=== PATIENT | female | born 1965 | race Caucasian/White ===

== ENCOUNTER 2017-09-15 21:26 | Emergency (ER) | payer OTHER ==
--- NOTE | 2017-09-15 22:42 | RAD ---
CHEST TWO VIEWS: 09/15/17 COMPARISON: 07/29/16 study. HISTORY: Cough. Heart size and mediastinum are within normal limits. The lungs are clear of infiltrates. Postoperativ e changes of the cervical spine are present. IMPRESSION: No active intrathoracic disease. POS: [facility]
== END 2017-09-15 23:17 | disposition home or self-care (01) ==
LOC: ERS 21:26
DX: J11.1 Influenza due to unidentified influenza virus with other respiratory manifestations (principal); F90.9 Attention-deficit hyperactivity disorder, unspecified type; E03.9 Hypothyroidism, unspecified; Z79.899 Other long term (current) drug therapy
CPT/HCPCS: 71020

== ENCOUNTER 2017-12-06 14:55 | Emergency (ER) | payer OTHER | END 2017-12-06 16:53 | disposition home or self-care (01) | LOC: ERS 14:55 | DX: L01.00 Impetigo, unspecified (principal); E03.9 Hypothyroidism, unspecified; K51.90 Ulcerative colitis, unspecified, without complications; F32.9 Major depressive disorder, single episode, unspecified; F90.9 Attention-deficit hyperactivity disorder, unspecified type; F17.210 Nicotine dependence, cigarettes, uncomplicated; Z71.6 Tobacco abuse counseling; Z79.891 Long term (current) use of opiate analgesic; Z79.899 Other long term (current) drug therapy | CPT/HCPCS: 99406 ==

== ENCOUNTER 2018-01-27 12:08 | Emergency (ER) | payer OTHER | END 2018-01-27 12:40 | disposition left against medical advice (07) | LOC: ERS 12:08 | DX: Z53.21 Procedure and treatment not carried out due to patient leaving prior to being seen by health care provider (principal) ==

== ENCOUNTER 2018-02-28 15:26 | Emergency (ER) | payer OTHER | END 2018-02-28 16:15 | disposition home or self-care (01) | LOC: ERS 15:26 | DX: J30.9 Allergic rhinitis, unspecified (principal); H73.892 Other specified disorders of tympanic membrane, left ear; E03.9 Hypothyroidism, unspecified; F41.9 Anxiety disorder, unspecified; F90.9 Attention-deficit hyperactivity disorder, unspecified type; Z71.6 Tobacco abuse counseling; F17.210 Nicotine dependence, cigarettes, uncomplicated; Z79.899 Other long term (current) drug therapy | CPT/HCPCS: 99406 ==

== ENCOUNTER 2018-04-25 21:37 | Emergency (ER) | payer OTHER ==
[2018-04-25] MEDS ORDERED: Dexamethasone 10 MG/ML VIAL ONE (22:14)
== END 2018-04-25 22:13 | disposition home or self-care (01) ==
LOC: ERS 21:37
DX: R21 Rash and other nonspecific skin eruption (principal); E03.9 Hypothyroidism, unspecified; F90.9 Attention-deficit hyperactivity disorder, unspecified type; F41.9 Anxiety disorder, unspecified; F17.210 Nicotine dependence, cigarettes, uncomplicated
CPT/HCPCS: 99282; J1100

== ENCOUNTER 2018-05-07 21:45 | Emergency (ER) | payer OTHER | END 2018-05-07 23:52 | disposition left against medical advice (07) | LOC: ERS 21:45 | DX: Z53.21 Procedure and treatment not carried out due to patient leaving prior to being seen by health care provider (principal) ==

== ENCOUNTER 2018-10-25 02:56 | Emergency (ER) | payer OTHER, SELFPAY | END 2018-10-25 04:19 | disposition home or self-care (01) | LOC: ERS 02:56 | DX: K05.10 Chronic gingivitis, plaque induced (principal); E03.9 Hypothyroidism, unspecified; F17.210 Nicotine dependence, cigarettes, uncomplicated | CPT/HCPCS: 99282 ==

== ENCOUNTER 2018-12-04 13:57 | Emergency (ER) | payer SELFPAY | END 2018-12-04 14:44 | disposition home or self-care (01) | LOC: ERS 13:57 | DX: H92.01 Otalgia, right ear (principal); K03.81 Cracked tooth; R59.1 Generalized enlarged lymph nodes; E03.9 Hypothyroidism, unspecified; F17.210 Nicotine dependence, cigarettes, uncomplicated; Z71.6 Tobacco abuse counseling; Z79.899 Other long term (current) drug therapy | CPT/HCPCS: 99406 ==

== ENCOUNTER 2018-12-19 17:38 | Emergency (ER) | payer SELFPAY ==
[2018-12-19 18:11] LABS: #Basophils 0.1 thou/uL (0.0-0.2); #Eosinphils 0.3 thou/uL (0.0-0.7); #Lymphocytes 3.9 thou/uL (1.20-3.40); #Monocytes 0.8 thou/uL (0.11-0.59); #Neutrophils 4.5 thou/uL (1.40-6.50); %Eosinophils 2.7 % (0.0-10.0); %Monocytes 7.8 % (0.0-10.0); %Neutrophils 47.4 % (42.0-75.0); Hemoglobin 14.6 g/dL (12.0-16.0); Mean Corpuscular HGB CONC 33.8 g/dL (32.0-36.0); Mean Corpuscular Hemoglobin 31.9 pg (27.0-31.0); Mean Corpuscular Volume 94.6 fL (78.0-98.0); Mean Platelet Volume 8.8 fL (7.4-10.4); Platelet Count 263 thou/uL (130-400); RBC Distribution Width 12.4 % (11.5-14.5); Red Blood Cell (RBC) Count 4.58 mill/uL (4.20-5.40); White Blood Cell (WBC) Count 9.6 thou/uL (4.8-10.8)
[2018-12-19 19:15] LABS: Albumin 3.3 g/dL (3.5-5.0)
[2018-12-19 19:16] LABS: Chloride 110 mmol/L (98-107); Potassium 4.1 mmol/L (3.5-5.1); Sodium 143 mmol/L (136-145)
[2018-12-19 19:17] LABS: Calcium 8.7 mg/dL (7.8-10.44)
[2018-12-19 19:18] LABS: Glucose 94 mg/dL (70-105); Protein, Total 5.3 g/dL (6.0-8.3)
[2018-12-19 19:19] LABS: Anion Gap 9 mmol/L (10-20); Bilirubin, Total 0.3 mg/dL (0.2-1.2); Carbon Dioxide 28 mmol/L (22-29)
[2018-12-19 19:21] LABS: Alkaline Phosphatase 37 U/L (40-150); Calc. Creatinine Clearance 0 mL/min (70-130); Estimated GFR-MDRD Greater than 90
[2018-12-19 19:22] LABS: BUN (Urea Nitrogen) 11 mg/dL (7.0-18.7)
[2018-12-19 19:23] LABS: AST (SGOT) 19 U/L (5-34)
[2018-12-19 19:24] LABS: ALT (SGPT) 14 U/L (8-55)
== END 2018-12-19 19:42 | disposition home or self-care (01) ==
LOC: ERS 17:38
DX: R60.0 Localized edema (principal); E03.9 Hypothyroidism, unspecified; F17.210 Nicotine dependence, cigarettes, uncomplicated; Z79.899 Other long term (current) drug therapy
CPT/HCPCS: 36415; 80053; 83880; 84484; 85025; 93005

== ENCOUNTER 2018-12-26 16:10 | Emergency (ER) | payer SELFPAY ==
[2018-12-26] MEDS ORDERED: Dexamethasone 4 mg/ml Vial ONE (16:43)
[2018-12-26] MEDS ORDERED: Ibuprofen 800 MG TAB ONE (17:17)
== END 2018-12-26 17:22 | disposition home or self-care (01) ==
LOC: ERS 16:10
DX: J02.9 Acute pharyngitis, unspecified (principal); E03.9 Hypothyroidism, unspecified; F17.210 Nicotine dependence, cigarettes, uncomplicated; Z79.899 Other long term (current) drug therapy
CPT/HCPCS: 87081; 87430; 87804; 99283; J1100

== ENCOUNTER 2018-12-29 18:18 | Emergency (ER) | payer SELFPAY ==
[2018-12-29] MEDS ORDERED: Dexamethasone 10 MG/ML VIAL ONE (18:53)
== END 2018-12-29 18:59 | disposition home or self-care (01) ==
LOC: ERS 18:18
DX: H10.12 Acute atopic conjunctivitis, left eye (principal); J30.2 Other seasonal allergic rhinitis; E03.9 Hypothyroidism, unspecified; F17.210 Nicotine dependence, cigarettes, uncomplicated
CPT/HCPCS: 99282; J1100

== ENCOUNTER 2019-01-03 16:50 | Emergency (ER) | payer SELFPAY ==
[2019-01-03 17:41] LABS: #Basophils 0.1 thou/uL (0.0-0.2); #Eosinphils 0.3 thou/uL (0.0-0.7); #Lymphocytes 5.4 thou/uL (1.20-3.40); #Monocytes 1.3 thou/uL (0.11-0.59); #Neutrophils 6.4 thou/uL (1.40-6.50); %Eosinophils 2.4 % (0.0-10.0); %Lymphocytes 39.8 % (21.0-51.0); %Monocytes 9.9 % (0.0-10.0); %Neutrophils 46.9 % (42.0-75.0); Hemoglobin 16.1 g/dL (12.0-16.0); Mean Corpuscular HGB CONC 32.5 g/dL (32.0-36.0); Mean Corpuscular Hemoglobin 30.4 pg (27.0-31.0); Mean Corpuscular Volume 93.4 fL (78.0-98.0); Mean Platelet Volume 7.9 fL (7.4-10.4); Platelet Count 359 thou/uL (130-400); RBC Distribution Width 12.3 % (11.5-14.5); Red Blood Cell (RBC) Count 5.29 mill/uL (4.20-5.40); White Blood Cell (WBC) Count 13.5 thou/uL (4.8-10.8)
--- NOTE | 2019-01-03 17:47 | RAD ---
EXAM: Chest PA and lateral: HISTORY: Cough sore throat sinus congestion COMPARISON: 09/15/2017 FINDINGS: Heart size is normal. The lungs are clear. No confluent pneumonia, overt edema, pleural effusion, or other acute process. IMPRESSION: No significant acute intrathoracic disease.
[2019-01-03 18:01] LABS: ALT (SGPT) 18 U/L (8-55); AST (SGOT) 20 U/L (5-34); Albumin 3.8 g/dL (3.5-5.0); Alkaline Phosphatase 51 U/L (40-150); Anion Gap 12 mmol/L (10-20); BUN (Urea Nitrogen) 8 mg/dL (9.8-20.1); Bilirubin, Total 0.8 mg/dL (0.2-1.2); Calc. Creatinine Clearance 0 mL/min (70-130); Carbon Dioxide 28 mmol/L (22-29); Chloride 103 mmol/L (98-107); Estimated GFR-MDRD 68; Globulin 2.4 g/dL (2.4-3.5); Glucose 102 mg/dL (70-105); Potassium 3.8 mmol/L (3.5-5.1); Protein, Total 6.2 g/dL (6.0-8.3); Sodium 139 mmol/L (136-145)
== END 2019-01-03 18:54 | disposition home or self-care (01) ==
LOC: ERS 16:50
DX: J06.9 Acute upper respiratory infection, unspecified (principal); E03.9 Hypothyroidism, unspecified; F17.210 Nicotine dependence, cigarettes, uncomplicated
CPT/HCPCS: 36415; 71046; 80053; 83880; 84443; 84484; 85025; 87081; 87430; 87804; 93005

== ENCOUNTER → 2019-06-02 | Emergency (ER) | payer SELFPAY ==
[2019-06-02 14:31] LABS: Bilirubin Negative (Negative); Blood, Urine Negative (Negative); Clarity Clear (Clear); Glucose, Urine (Dipstick) Normal (Negative); Leukocyte Negative Leu/uL (Negative); Nitrite Negative (Negative); Protein, Urine (Dipstick) Negative (Neg-Trace); Urobilinogen Normal mg/dL (Less than 2)
== END ==
LOC: ERS 14:00
DX: M54.5 Low back pain (principal); E03.9 Hypothyroidism, unspecified; Z87.891 Personal history of nicotine dependence; Z79.899 Other long term (current) drug therapy
CPT/HCPCS: 81003; 99283

== ENCOUNTER 2019-06-10 20:38 | Emergency (ER) | payer SELFPAY | END 2019-06-10 23:26 | disposition home or self-care (01) | LOC: ERS 20:38 | DX: L03.211 Cellulitis of face (principal); E03.9 Hypothyroidism, unspecified; F41.9 Anxiety disorder, unspecified; F90.9 Attention-deficit hyperactivity disorder, unspecified type; Z87.891 Personal history of nicotine dependence; Z79.899 Other long term (current) drug therapy | CPT/HCPCS: 99283 ==

== ENCOUNTER 2019-06-27 15:37 | Emergency (ER) | payer SELFPAY | END 2019-06-27 18:05 | disposition home or self-care (01) | LOC: ERS 15:37 | DX: L03.211 Cellulitis of face (principal); B37.0 Candidal stomatitis; E03.9 Hypothyroidism, unspecified; F90.9 Attention-deficit hyperactivity disorder, unspecified type; F41.9 Anxiety disorder, unspecified; F17.210 Nicotine dependence, cigarettes, uncomplicated; Z79.899 Other long term (current) drug therapy | CPT/HCPCS: 99283 ==

== ENCOUNTER 2019-07-10 05:34 | Emergency (ER) | payer SELFPAY ==
[2019-07-10 06:52] LABS: #Basophils 0.1 thou/uL (0.0-0.2); #Eosinphils 0.3 thou/uL (0.0-0.7); #Lymphocytes 3.7 thou/uL (1.20-3.40); #Neutrophils 2.7 thou/uL (1.40-6.50); %Basophils 0.9 % (0.0-1.0); %Eosinophils 3.4 % (0.0-10.0); %Lymphocytes 47.6 % (21.0-51.0); %Monocytes 13.1 % (0.0-10.0); %Neutrophils 35.1 % (42.0-75.0); Hemoglobin 12.7 g/dL (12.0-16.0); Mean Corpuscular HGB CONC 33.9 g/dL (32.0-36.0); Mean Corpuscular Hemoglobin 32.1 pg (27.0-31.0); Mean Corpuscular Volume 94.5 fL (78.0-98.0); Mean Platelet Volume 8.3 fL (7.4-10.4); Platelet Count 260 thou/uL (130-400); RBC Distribution Width 11.5 % (11.5-14.5); Red Blood Cell (RBC) Count 3.96 mill/uL (4.20-5.40); White Blood Cell (WBC) Count 7.8 thou/uL (4.8-10.8)
[2019-07-10 07:10] LABS: ALT (SGPT) 13 U/L (8-55); AST (SGOT) 21 U/L (5-34); Albumin 4.1 g/dL (3.5-5.0); Alkaline Phosphatase 49 U/L (40-110); Anion Gap 12 mmol/L (10-20); BUN (Urea Nitrogen) 13 mg/dL (9.8-20.1); Bilirubin, Total 0.4 mg/dL (0.2-1.2); Calc. Creatinine Clearance 0 mL/min (70-130); Calcium 9.2 mg/dL (7.8-10.44); Carbon Dioxide 22 mmol/L (22-29); Chloride 108 mmol/L (98-107); Estimated GFR-MDRD 76; Globulin 2.6 g/dL (2.4-3.5); Glucose 96 mg/dL (70-105); Potassium 3.9 mmol/L (3.5-5.1); Protein, Total 6.7 g/dL (6.0-8.3); Sodium 138 mmol/L (136-145)
--- NOTE | 2019-07-10 07:47 | ULT ---
ULTRASOUND DOPPLER DUPLEX VENOUS BILATERAL LOWER EXTREMITIES: DATE: 07/10/2019 HISTORY: 53-year-old female with bilateral lower extremity pain TECHNIQUE: Grayscale, color-flow, and spectral analysis, of major veins of bilateral lower extremities. FINDINGS: There is demonstration of blood flow with normal compressibility, of the bilateral common femoral, pr ofunda femoral, greater saphenous, femoral, popliteal, and posterior tibial, veins. IMPRESSION: Negative. No deep venous thrombosis of bilateral lower extremities.
== END 2019-07-10 08:04 | disposition home or self-care (01) ==
LOC: ERS 05:34
DX: M79.89 Other specified soft tissue disorders (principal); R23.4 Changes in skin texture; E03.9 Hypothyroidism, unspecified; F41.9 Anxiety disorder, unspecified; F90.9 Attention-deficit hyperactivity disorder, unspecified type; F17.210 Nicotine dependence, cigarettes, uncomplicated; Z79.899 Other long term (current) drug therapy
CPT/HCPCS: 36415; 80053; 83880; 85025; 93970

== ENCOUNTER 2019-07-17 11:09 | Emergency (ER) | payer SELFPAY ==
--- NOTE | 2019-07-17 11:46 | RAD ---
2 view chest: [07/17/2019] Comparion:01/03/2019 HISTORY: Shortness of breath with bilateral lower extremity edema FINDINGS: Heart and mediastinal contours are grossly unremarkable. No pneumothorax or pleural fluid. No focal consolidation or alveolar edema. IMPRESSION: No acute findings.
[2019-07-17 12:12] LABS: ALT (SGPT) 12 U/L (8-55); AST (SGOT) 18 U/L (5-34); Albumin 3.9 g/dL (3.5-5.0); Alkaline Phosphatase 55 U/L (40-110); Anion Gap 11 mmol/L (10-20); BUN (Urea Nitrogen) 12 mg/dL (9.8-20.1); Bilirubin, Total 0.3 mg/dL (0.2-1.2); Calc. Creatinine Clearance 0 mL/min (70-130); Calcium 9.3 mg/dL (7.8-10.44); Carbon Dioxide 26 mmol/L (22-29); Chloride 108 mmol/L (98-107); Estimated GFR-MDRD 79; Globulin 2.2 g/dL (2.4-3.5); Glucose 114 mg/dL (70-105); Protein, Total 6.1 g/dL (6.0-8.3); Sodium 141 mmol/L (136-145)
[2019-07-17] MEDS ORDERED: ISOVUE-370 76%-LOCM 1 ML ONE (12:13)
[2019-07-17 12:31] LABS: #Basophils 0.1 thou/uL (0.0-0.2); #Eosinphils 0.2 thou/uL (0.0-0.7); #Lymphocytes 2.9 thou/uL (1.20-3.40); #Monocytes 0.8 thou/uL (0.11-0.59); #Neutrophils 2.3 thou/uL (1.40-6.50); %Eosinophils 3.1 % (0.0-10.0); %Lymphocytes 47.3 % (21.0-51.0); %Monocytes 12.5 % (0.0-10.0); %Neutrophils 36.1 % (42.0-75.0); Hemoglobin 12.3 g/dL (12.0-16.0); Mean Corpuscular HGB CONC 32.3 g/dL (32.0-36.0); Mean Corpuscular Hemoglobin 30.8 pg (27.0-31.0); Mean Corpuscular Volume 95.1 fL (78.0-98.0); Mean Platelet Volume 7.9 fL (7.4-10.4); Platelet Count 279 thou/uL (130-400); RBC Distribution Width 11.2 % (11.5-14.5); White Blood Cell (WBC) Count 6.2 thou/uL (4.8-10.8)
--- NOTE | 2019-07-17 13:30 | CT ---
CT PULMONARY ANGIOGRAM WITH IV CONTRAST AND 3D POSTPROCESSING: Date: 07/17/19 HISTORY: Shortness of breath. FINDINGS: The pulmonary arterial vasculature is well-opacified without filling defects to suggest pulmonary emb olism. The thoracic aorta is opacified without aneurysm or dissection. No pleural or pericardial effu sions are seen. No pneumothoraces, focal areas of consolidation, or lung masses are identified. There are dependent changes in the posterior lung escobar. There is bullous change in the right upper lobe. No acute osseous abnormalities are seen. IMPRESSION: No CT evidence of pulmonary embolism. POS: [facility]
[2019-07-17] MEDS ORDERED: Acetaminophen 500 MG TAB ONE (14:07)
[2019-07-17] MEDS ORDERED: Dexamethasone 10 MG/ML VIAL ONE (14:08)
--- NOTE | 2019-07-17 14:09 | ULT ---
VENOUS DOPPLER ULTRASOUND OF THE RIGHT LOWER EXTREMITY: Date: 07/17/19 HISTORY: Right lower extremity pain and lump in medial thigh. TECHNIQUE: Rojo scale ultrasound with color flow and spectral Doppler imaging of the deep venous system of the r ight lower extremity performed. FINDINGS: There is good flow, compression, and augmentation noted in the right common femoral, femoral, deep fe moral, popliteal, and posterior tibial veins. There is a 4.5 x 1.2 x 3.3 cm avascular cyst in the popliteal fossa consistent with Colon's cyst. Sonographic evaluation of the region of palpable concern in the medial thigh demonstrates no abnormal ity. IMPRESSION: 1. No evidence of deep venous thrombosis in the right lower extremity. 2. Colon's cyst. POS: [facility]
== END 2019-07-17 14:23 | disposition home or self-care (01) ==
LOC: ERS 11:09
DX: R06.00 Dyspnea, unspecified (principal); E03.9 Hypothyroidism, unspecified; F41.9 Anxiety disorder, unspecified; F90.9 Attention-deficit hyperactivity disorder, unspecified type; F17.210 Nicotine dependence, cigarettes, uncomplicated; Z79.899 Other long term (current) drug therapy
CPT/HCPCS: 36415; 71046; 71275; 80053; 83880; 84484; 85025; 85379; 93005; 94760; 96361; 96374; J1100; Q9966

== ENCOUNTER 2020-02-05 19:24 | Emergency (ER) | payer SELFPAY ==
--- NOTE | 2020-02-05 20:06 | RAD ---
SINGLE VIEW OF THE CHEST: Comparison: 03-02-17 History: Intermittent right chest pain. FINDINGS: Single view of the chest shows a normal sized cardiomediastinal silhouette. There is no evidence of c onsolidation, mass, or pleural effusion. The bones are unremarkable. IMPRESSION: No evidence of acute cardiopulmonary disease. POS: [facility]
[2020-02-05 20:15] LABS: #Basophils 0.2 thou/uL (0.0-0.2); #Eosinphils 0.1 thou/uL (0.0-0.7); #Lymphocytes 3.9 thou/uL (1.20-3.40); #Neutrophils 4.7 thou/uL (1.40-6.50); %Basophils 1.5 % (0.0-1.0); %Eosinophils 1.5 % (0.0-10.0); %Lymphocytes 39.7 % (21.0-51.0); %Monocytes 9.7 % (0.0-10.0); %Neutrophils 47.6 % (42.0-75.0); Mean Corpuscular Hemoglobin 32.3 pg (27.0-31.0); Mean Corpuscular Volume 97.9 fL (78.0-98.0); Platelet Count 236 thou/uL (130-400); RBC Distribution Width 12.3 % (11.5-14.5); Red Blood Cell (RBC) Count 4.95 mill/uL (4.20-5.40); White Blood Cell (WBC) Count 9.9 thou/uL (4.8-10.8)
[2020-02-05 20:39] LABS: BHCG - Serum Negative (NEGATIVE); Pregs Control Background? CLEAR/WHITE (CLR/WHITE); Pregs Control Bar Appear? YES (CONTROL BAR)
[2020-02-05 20:44] LABS: ALT (SGPT) 14 U/L (8-55); AST (SGOT) 20 U/L (5-34); Albumin 3.9 g/dL (3.5-5.0); Alkaline Phosphatase 48 U/L (40-110); Anion Gap 11 mmol/L (10-20); BUN (Urea Nitrogen) 20 mg/dL (9.8-20.1); CK (CPK) 111 U/L (29-168); Calc. Creatinine Clearance 0 mL/min (70-130); Calcium 9.9 mg/dL (7.8-10.44); Carbon Dioxide 27 mmol/L (22-29); Chloride 104 mmol/L (98-107); Estimated GFR-MDRD 56; Globulin 2.2 g/dL (2.4-3.5); Glucose 98 mg/dL (70-105); Potassium 3.7 mmol/L (3.5-5.1); Protein, Total 6.1 g/dL (6.0-8.3); Sodium 138 mmol/L (136-145)
--- NOTE | 2020-02-08 14:28 | EKG ---
Test Reason : Blood Pressure : / mmHG Vent. Rate : 081 BPM Atrial Rate : 081 BPM P-R Int : 166 ms QRS Dur : 070 ms QT Int : 354 ms P-R-T Axes : 068 001 045 degrees QTc Int : 411 ms Normal sinus rhythm with sinus arrhythmia Possible Left atrial enlargement Possible Anterior infarct , age undetermined Abnormal ECG Confirmed by KEKE DEMARCO DO ([id number]), video effects editor TAY GOMEZ ([id number]) on 02/08/2020 2:27:51 PM Referred By: Confirmed By:KEKE DEMARCO DO
== END 2020-02-05 21:30 | disposition home or self-care (01) ==
LOC: ERS 19:24
DX: R07.89 Other chest pain (principal); E03.9 Hypothyroidism, unspecified; F41.9 Anxiety disorder, unspecified; F90.9 Attention-deficit hyperactivity disorder, unspecified type; F17.210 Nicotine dependence, cigarettes, uncomplicated; Z79.899 Other long term (current) drug therapy
CPT/HCPCS: 71045; 80053; 82550; 84443; 84484; 84703; 85025; 93005

== ENCOUNTER 2021-01-06 13:32 | Emergency (ER) | payer OTHER, SELFPAY ==
[2021-01-06] MEDS ORDERED: cefTRIAXone\\ROCEPHIN 1 GM VIAL ONE (14:27)
[2021-01-06] MEDS ORDERED: Lidocaine 1% (PF) 30 ML VIAL ONE (14:27)
== END 2021-01-06 14:53 | disposition home or self-care (01) ==
LOC: ERS 13:32
DX: L08.9 Local infection of the skin and subcutaneous tissue, unspecified (principal); E03.9 Hypothyroidism, unspecified; F17.210 Nicotine dependence, cigarettes, uncomplicated
CPT/HCPCS: 96372; 99283; J0696; J2001

== ENCOUNTER 2021-01-09 13:06 | Emergency (ER) | payer SELFPAY | END 2021-01-09 13:45 | disposition left against medical advice (07) | LOC: ERS 13:06 | DX: Z53.21 Procedure and treatment not carried out due to patient leaving prior to being seen by health care provider (principal) ==

== ENCOUNTER 2021-03-16 04:55 | Emergency (ER) | payer SELFPAY ==
[2021-03-16 05:21] LABS: Bilirubin Negative (Negative); Blood, Urine Large (Negative); Glucose, Urine (Dipstick) Negative (Negative); Ketone, Urine Negative (Negative); Leukocyte Moderate (Negative); Nitrite Negative (Negative); Protein, Urine (Dipstick) Trace mg/dL (Neg-Trace); Urobilinogen 0.2 mg/dL (Less than 2)
[2021-03-16 05:23] LABS: Clarity Clear (Clear)
[2021-03-16 05:24] LABS: Specific Gravity, Urine 1.022 (1.002-1.036)
[2021-03-16 05:26] LABS: Pregnancy Test - Urine (BHCG) Negative (Negative); Pregu Control Background? CLEAR/WHITE (CLR/WHITE); Pregu Control Bar Appear? YES (CONTROL BAR); Specific Gravity 1.022 (1.002-1.036)
[2021-03-16 05:31] LABS: Other Microscopic Description Less than 2 mL rec'd; WBC/HPF 21-50 HPF (0-3)
[2021-03-16 05:34] LABS: #Eosinphils 0.2 thou/uL (0.0-0.7); #Lymphocytes 3.1 thou/uL (1.20-3.40); #Monocytes 1.3 thou/uL (0.11-0.59); #Neutrophils 10.8 thou/uL (1.40-6.50); %Basophils 0.3 % (0.0-1.0); %Eosinophils 1.6 % (0.0-10.0); %Lymphocytes 19.8 % (21.0-51.0); %Monocytes 8.7 % (0.0-10.0); %Neutrophils 69.7 % (42.0-75.0); Hemoglobin 13.2 g/dL (12.0-16.0); Mean Corpuscular HGB CONC 34.3 g/dL (32.0-36.0); Mean Corpuscular Hemoglobin 32.9 pg (27.0-31.0); Mean Platelet Volume 8.5 fL (7.4-10.4); Platelet Count 263 thou/uL (130-400); RBC Distribution Width 11.6 % (11.5-14.5); Red Blood Cell (RBC) Count 4.01 mill/uL (4.20-5.40); White Blood Cell (WBC) Count 15.5 thou/uL (4.8-10.8)
[2021-03-16 06:02] LABS: ALT (SGPT) 17 U/L (8-55); AST (SGOT) 21 U/L (5-34); Albumin 3.8 g/dL (3.5-5.0); Alkaline Phosphatase 61 U/L (40-110); Anion Gap 13 mmol/L (10-20); BUN (Urea Nitrogen) 9 mg/dL (9.8-20.1); Bilirubin, Total 0.4 mg/dL (0.2-1.2); Calc. Creatinine Clearance 0 mL/min (70-130); Calcium 9.5 mg/dL (7.8-10.44); Carbon Dioxide 30 mmol/L (22-29); Chloride 105 mmol/L (98-107); Globulin 2.4 g/dL (2.4-3.5); Glucose 121 mg/dL (70-105); Potassium 3.9 mmol/L (3.5-5.1); Protein, Total 6.2 g/dL (6.0-8.3); Sodium 144 mmol/L (136-145)
[2021-03-16] MEDS ORDERED: Lidocaine 1% w/Epinephrine 1:100K 20 ML VIAL ONE (06:04)
== END 2021-03-16 06:48 | disposition home or self-care (01) ==
LOC: ERS 04:55
DX: N75.0 Cyst of Bartholin's gland (principal); N30.91 Cystitis, unspecified with hematuria; E03.9 Hypothyroidism, unspecified; F17.210 Nicotine dependence, cigarettes, uncomplicated; Z79.899 Other long term (current) drug therapy
CPT/HCPCS: 36415; 56420; 80053; 81003; 81015; 81025; 85025

== ENCOUNTER 2022-07-26 22:35 | Emergency (ER) | payer SELFPAY ==
[2022-07-27 00:18] LABS: #Basophils 0.1 thou/uL (0.0-0.2); #Eosinphils 0.3 thou/uL (0.0-0.7); #Monocytes 0.8 thou/uL (0.11-0.59); #Neutrophils 3.4 thou/uL (1.40-6.50); %Basophils 0.7 % (0.0-1.0); %Lymphocytes 46.3 % (21.0-51.0); %Monocytes 8.8 % (0.0-10.0); %Neutrophils 40.2 % (42.0-75.0); Hemoglobin 13.1 g/dL (12.0-16.0); Mean Corpuscular HGB CONC 33.3 g/dL (32.0-36.0); Mean Corpuscular Volume 96.1 fl (78.0-98.0); Mean Platelet Volume 8.9 fL (7.4-10.4); Platelet Count 243 thou/uL (130-400); RBC Distribution Width 13.4 % (11.5-14.5); Red Blood Cell (RBC) Count 4.11 mill/uL (4.20-5.40); White Blood Cell (WBC) Count 8.5 thou/uL (4.8-10.8)
[2022-07-27 00:39] LABS: ALT (SGPT) 21 U/L (8-55); AST (SGOT) 49 U/L (5-34); Albumin 4.4 g/dL (3.5-5.0); Alkaline Phosphatase 56 U/L (40-110); Anion Gap 13 mmol/L (10-20); BUN (Urea Nitrogen) 12 mg/dL (9.8-20.1); Calc. Creatinine Clearance 0 mL/min (70-130); Calcium 9.9 mg/dL (7.8-10.44); Carbon Dioxide 25 mmol/L (22-29); Chloride 103 mmol/L (98-107); Estimated GFR 70; Glucose 110 mg/dL (70-105); Potassium 3.3 mmol/L (3.5-5.1); Protein, Total 7.4 g/dL (6.0-8.3); Sodium 138 mmol/L (136-145)
== END 2022-07-27 00:46 | disposition home or self-care (01) ==
LOC: ERS 22:35
DX: E03.9 Hypothyroidism, unspecified (principal); F17.210 Nicotine dependence, cigarettes, uncomplicated
CPT/HCPCS: 36415; 80053; 84443; 85025; 99284

== ENCOUNTER 2022-08-16 23:37 | Observation (INO) | payer SELFPAY ==
[2022-08-17] MEDS ORDERED: Orphenadrine Citrate 60 MG/2 ML VIAL ONE (01:44)
[2022-08-17] MEDS ORDERED: Ketorolac Tromethamine 30 MG/ML VIAL ONE (01:44)
[2022-08-17] MEDS ORDERED: Orphenadrine Citrate 60 MG/2 ML VIAL IM SCH (01:45)
[2022-08-17 03:36] LABS: #Basophils 0.1 thou/uL (0.0-0.2); #Lymphocytes 1.6 thou/uL (1.20-3.40); #Monocytes 0.5 thou/uL (0.11-0.59); #Neutrophils 7.9 thou/uL (1.40-6.50); %Basophils 0.8 % (0.0-1.0); %Eosinophils 0.5 % (0.0-10.0); %Lymphocytes 15.7 % (21.0-51.0); %Monocytes 4.9 % (0.0-10.0); %Neutrophils 78.2 % (42.0-75.0); Hemoglobin 13.6 g/dL (12.0-16.0); Mean Corpuscular HGB CONC 32.9 g/dL (32.0-36.0); Mean Corpuscular Hemoglobin 32.7 pg (27.0-31.0); Mean Corpuscular Volume 99.5 fl (78.0-98.0); Mean Platelet Volume 8.7 fL (7.4-10.4); Platelet Count 280 10x3/uL (130-400); RBC Distribution Width 13.4 % (11.5-14.5); Red Blood Cell (RBC) Count 4.16 mill/uL (4.20-5.40); White Blood Cell (WBC) Count 10.1 10x3/uL (4.8-10.8)
[2022-08-17 03:58] LABS: ALT (SGPT) 33 U/L (8-55); AST (SGOT) 32 U/L (5-34); Albumin 4.3 g/dL (3.5-5.0); Alkaline Phosphatase 64 U/L (40-110); Anion Gap 12 mmol/L (10-20); BUN (Urea Nitrogen) 10 mg/dL (9.8-20.1); Bilirubin, Total 0.6 mg/dL (0.2-1.2); Calc. Creatinine Clearance 0 mL/min (70-130); Calcium 9.7 mg/dL (7.8-10.44); Carbon Dioxide 25 mmol/L (22-29); Chloride 106 mmol/L (98-107); Estimated GFR 86; Globulin 3.1 g/dL (2.4-3.5); Glucose 130 mg/dL (70-105); Potassium 3.6 mmol/L (3.5-5.1); Protein, Total 7.4 g/dL (6.0-8.3); Sodium 139 mmol/L (136-145)
[2022-08-17 07:17] LABS: SARS-CoV-2 NAA Rapid Test Not Detected (NotDetected)
[2022-08-17] MEDS ORDERED: Guaifenesin DM 100-10/5 ML UDCUP PO PRN (09:22)
[2022-08-17] MEDS ORDERED: Senokot S 8.6-50 MG TAB PO PRN (09:22)
[2022-08-17] MEDS ORDERED: Ondansetron PF 4 MG/2 ML Vial IVP PRN (09:22)
[2022-08-17] MEDS ORDERED: Acetaminophen 325 MG TAB PO PRN (09:22)
[2022-08-17] MEDS ORDERED: Calcium Carbonate 500 MG ChewTAB PO PRN (09:22)
[2022-08-17] MEDS ORDERED: Iopamidol-370 76% 500 ML 1 ML ONE (10:00)
[2022-08-17] MEDS ORDERED: FENTANYL 50 MCG/ML 1 ML VIAL ONE (11:16)
[2022-08-17] MEDS ORDERED: Famotidine 20 MG TAB PO SCH (21:00)
[2022-08-17] MEDS ORDERED: Atorvastatin Calcium 40 MG TAB PO SCH (21:00)
[2022-08-18] MEDS ORDERED: Levothyroxine Sodium 112 MCG TAB PO SCH (06:00)
[2022-08-18] MEDS ORDERED: Levothyroxine Sodium 25 MCG TAB PO SCH (06:00)
[2022-08-18] MEDS ORDERED: Levothyroxine Sodium 125 MCG TAB PO SCH (06:00)
[2022-08-18] MEDS ORDERED: Enoxaparin Sodium 40 MG/0.4 ML SYRINGE SC SCH (09:00)
[2022-08-18] MEDS ORDERED: Aspirin 81 mg Enteric Coated Tablet PO SCH (09:00)
== END 2022-08-17 11:32 | disposition short-term general hospital (02) ==
LOC: ERS 23:37 → ERHOLD 08-17 05:39
PROVIDERS: ADMIT Internal Medicine; ATTEND Internal Medicine
DX: G45.9 Transient cerebral ischemic attack, unspecified (principal); E03.9 Hypothyroidism, unspecified; F98.8 Other specified behavioral and emotional disorders with onset usually occurring in childhood and adolescence; F17.210 Nicotine dependence, cigarettes, uncomplicated; Z79.890 Hormone replacement therapy; Z88.5 Allergy status to narcotic agent; Z88.8 Allergy status to other drugs, medicaments and biological substances; Z98.1 Arthrodesis status; Z20.822 Contact with and (suspected) exposure to COVID-19
CPT/HCPCS: 36415; 70498; 80053; 85025; 96372; 96374; 96375; J1885; J2360; J3010; Q9967; U0002

== ENCOUNTER 2023-09-02 13:42 | Emergency (ER) | payer SELFPAY ==
[2023-09-02] MEDS ORDERED: diphenhydrAMINE 50 MG/ML VIAL ONE (16:24)
[2023-09-02] MEDS ORDERED: Metoclopramide HCl 10 MG/2 ML VIAL ONE (16:24)
[2023-09-02 17:29] LABS: SARS-CoV-2 NAA Rapid Test Not Detected (NotDetected)
== END 2023-09-02 17:01 | disposition home or self-care (01) ==
LOC: ERS 13:42
DX: J00 Acute nasopharyngitis [common cold] (principal); J20.9 Acute bronchitis, unspecified; Z20.822 Contact with and (suspected) exposure to COVID-19; E03.9 Hypothyroidism, unspecified; E78.00 Pure hypercholesterolemia, unspecified; F17.290 Nicotine dependence, other tobacco product, uncomplicated; Z79.899 Other long term (current) drug therapy
CPT/HCPCS: 71045; 96365; 96375; J1200; J2765